=== PATIENT | male | born 1955 | race African-American/Black ===

== ENCOUNTER 2016-11-09 12:45 | Emergency (ER) | payer OTHER ==
[~2016-11-09] VITALS: Ht 172.7 cm; Wt 84.0 kg
[~2016-11-09 12:45] MED LIST: ERYTHROMYC1 APPLICAT LEFT EYE; NOHOMEMEDS
[2016-11-09 14:53] LABS: HEMATOCRIT 40.1 % (38.0-50.0); MCH 32.6 PG (29.0-34.0); MCHC 33.9 G/DL (30.0-36.0); MCV 96.2 FL (86-99); MEAN PLAT.VOLUME 8.2 uM^3 (9.0-12.4); PLATELET COUNT 178 K/uL (156-360); RBC DIS.WIDTH-SD 46.4 % (39-53); RED BLOOD COUNT 4.17 M/uL (4.00-5.50)
[2016-11-09 15:03] LABS: CHLORIDE 105 mEq/L (99-109); POTASSIUM 4.4 mEq/L (3.7-5.4); SODIUM 140 mEq/L (136-147)
[2016-11-09 15:05] LABS: GLUCOSE 110 mg/dL (70-99)
[2016-11-09 15:06] LABS: ANION GAP 10 MEQ/L (2-14)
[2016-11-09 15:09] LABS: GFR ESTIMATE (CALCULATED) > 59 mL/min/
[2016-11-09 15:10] LABS: UREA NITROGEN (BUN) 13 mg/dL (9-23)
[2016-11-09 17:11] VITALS: BP 131/78
== END 2016-11-09 17:12 | disposition home or self-care (01) ==
LOC: EME 12:45
PROVIDERS: Physician Assistant Medical
DX: M16.11 Unilateral primary osteoarthritis, right hip (principal); M79.651 Pain in right thigh; I10 Essential (primary) hypertension; F17.200 Nicotine dependence, unspecified, uncomplicated
CPT/HCPCS: 73502; 80048; 85027; 93971; 99281; 99283

== ENCOUNTER → 2016-12-26 | Outpatient (CLI) | payer OTHER | END | disposition home or self-care (01) | LOC: CDC 10:22 | DX: Z01.810 Encounter for preprocedural cardiovascular examination (principal) | CPT/HCPCS: 93000 ==